=== PATIENT | male | born 1935 | race Caucasian/White ===

== ENCOUNTER 2019-12-27 05:52 | Day surgery (SDC) | payer MEDICARE, OTHER ==
[~2019-12-27] VITALS: Ht 152.4 cm; Wt 45.5 kg
[~2019-12-27 05:52] MED LIST: SODIUM CHLORIDE 0.9% 1,000 ML ONE
[2019-12-27] MEDS ORDERED: SODIUM CHLORIDE 0.9% 1,000 ML IV ONE (06:30)
[2019-12-27] MEDS ORDERED: MIDAZOLAM HCL 2 MG/2 ML VIAL ONE (07:37)
[2019-12-27] MEDS ORDERED: FentaNYL CITRATE-PF 100 MCG/2 ML VIAL ONE (07:37)
[2019-12-27] MEDS ORDERED: OS500 PO (08:08)
[2019-12-27] MEDS ORDERED: DOXY100C PO (08:08)
[2019-12-27] MEDS ORDERED: NYST100026 PO (08:08)
[2019-12-27] MEDS ORDERED: ALBU8HFA PO (08:08)
[2019-12-27] MEDS ORDERED: GUAI400T94 PO (08:08)
[2019-12-27] MEDS ORDERED: OMEP20 PO (08:08)
[2019-12-27] MEDS ORDERED: MONT10TA21 PO (08:08)
[2019-12-27] MEDS ORDERED: TRIA15CR49 TP (08:08)
[2019-12-27] MEDS ORDERED: PROM118S4 PO (08:08)
[2019-12-27] MEDS ORDERED: CHOL100018 PO (08:08)
[2019-12-27] MEDS ORDERED: IPRA3AMP23 IH (08:08)
[2019-12-27] MEDS ORDERED: DICY20 PO (08:08)
[2019-12-27] MEDS ORDERED: PRED5 PO (08:08)
[2019-12-27] MEDS ORDERED: GABA-531 PO (08:08)
[2019-12-27] MEDS ORDERED: BIMA12.5OS OU (08:08)
[2019-12-27] MEDS ORDERED: BUDE10.2 IH (08:08)
[2019-12-27] MEDS ORDERED: TAMS-13 PO (08:08)
[2019-12-27] MEDS ORDERED: FLUO120C4 TP (08:08)
[2019-12-27] MEDS ORDERED: METO25 PO (08:08)
[2019-12-27] MEDS ORDERED: DIPH12.55 PO (08:08)
[2019-12-27] MEDS ORDERED: MethylPREDNISolone SOD SUCC 125 MG/2 ML VIAL IVP ONE (09:00)
[2019-12-27] MEDS ORDERED: MethylPREDNISolone SOD SUCC 125 MG/2 ML VIAL ONE (09:16)
[2019-12-27] MEDS ORDERED: LIDOCAINE 2% 30 ML JELLY ONE (15:57)
[2019-12-27] MEDS ORDERED: LIDOCAINE 4% 50 ML SOLUTION ONE (15:57)
[2019-12-27] MEDS ORDERED: BENZOCAINE 20% 50 MCG/SPRAY 57 GM ONE (15:57)
[2019-12-27] MEDS ORDERED: ALBUTEROL SULFATE 2.5 MG/0.5 ML NEB SOLUTION NEB ONE (15:57)
[2019-12-27] MEDS ORDERED: OXYGEN THERAPY IH SCH (20:00)
== END 2019-12-27 10:45 | disposition home or self-care (01) ==
LOC: SURGERY 05:52
PROVIDERS: ATTEND Internal Medicine Critical Care Medicine
DX: R05 Cough (principal); J84.10 Pulmonary fibrosis, unspecified; J47.9 Bronchiectasis, uncomplicated; J34.89 Other specified disorders of nose and nasal sinuses; J98.8 Other specified respiratory disorders; J38.4 Edema of larynx; B37.0 Candidal stomatitis; I10 Essential (primary) hypertension; E78.00 Pure hypercholesterolemia, unspecified; Z79.899 Other long term (current) drug therapy; R19.00 Intra-abdominal and pelvic swelling, mass and lump, unspecified site
CPT/HCPCS: 31623; 31624; 71045; 87015; 87070; 87101; 87205; 87206; 87220; 88108; 88184; 88185; 88312; 93005; J2250; J2930; J3010; J7030